=== PATIENT | female | born 1930 | race Caucasian/White ===

== ENCOUNTER 2019-06-07 14:31 | Observation (INO) | payer MEDICARE, OTHER ==
[2019-06-07] MEDS ORDERED: Sodium Chloride 0.9% 10 ML Syringe FLUSH PRN (14:36)
--- NOTE | 2019-06-07 14:43 | EDM.PDOC ---
ED HPI GENERAL MEDICAL PROBLEM - General Time Seen by Provider: 06/07/19 14:31 Source of Information: Reports: Patient, EMS History Limitations: Reports: No Limitations - History of Present Illness INITIAL COMMENTS - FREE TEXT/NARRATIVE: Patient comes into the emergency department with sudden onset of chest/ epigastric discomfort. Patient states that it came on suddenly approximately 30 minutes after she had lunch. She states that she did have some fried eggs for lunch. She states that she became extremely nauseated and short of breath. She states that it lasted approximate 45 minutes. End up calling 911 for the patient does have a coronary artery history. She had a stent placed approximately 8 months ago. She describes the pain as sharp shooting midsternal upper epigastric region. She denies it radiating to her shoulder or jaw region. She states currently that she is experiencing no further pain or discomfort. She is up-to-date with all of her vaccines and did have the flu shot this year. She denies any other concerns or complaints at the present time. EMS did give 4 baby aspirin and completed an EKG prior to the patient's arrival. No ST elevation was noted on the EKG. Onset: Sudden Duration: Constant Location: Reports: Chest, Abdomen Quality: Reports: Sharp, Stabbing Severity: Moderate Improves with: Reports: None Worsens with: Reports: None Context: Reports: Other Associated Symptoms: Reports: Nausea/Vomiting - Related Data Allergies Allergy/AdvReac Type Severity Reaction Status Date / Time ezetimibe [From Zetia] Allergy Cannot Verified 06/07/19 14:44 Remember hydrocodone Allergy Other Verified 06/07/19 14:42 metformin Allergy Rash Verified 06/07/19 14:44 niacin Allergy Rash Verified 06/07/19 14:44 nickel Allergy Rash Verified 06/07/19 14:44 penicillin Allergy Other Verified 06/07/19 14:42 penicillinase Allergy Other Verified 06/07/19 14:42 procaine Allergy Rash Verified 06/07/19 14:44 tramadol Allergy Cannot Verified 06/07/19 14:44 Remember Home Meds: Home Meds Acetaminophen [Tylenol Extra Strength] 1,000 mg PO Q6H PRN 06/07/19 [History] Acetaminophen with Codeine [Tylenol with Codeine #3 Tablet] 1 each PO Q6H PRN [History] Clopidogrel [Plavix] 75 mg PO DAILY 06/07/19 [History] Cyanocobalamin (Vitamin B-12) [Vitamin B-12] 1,000 mcg PO QID 06/07/19 [History] Gabapentin [Neurontin] 600 mg PO TID 06/07/19 [History] Hydrochlorothiazide [Microzide] 12.5 mg PO DAILY 06/07/19 [History] Insulin Aspart [NovoLOG] 2 - 14 unit SQ WITHMEALSANDBED 06/07/19 [History] Insulin Glargine,Hum.Rec.Anlog [Basaglar Kwikpen U-100] 22 unit SQ BEDTIME 06/07 [History] Levothyroxine [Synthroid] 100 mcg PO ACBREAKFAST 06/07/19 [History] Losartan [Cozaar] 25 mg PO DAILY 06/07/19 [History] Melatonin 3 mg PO BEDTIME 06/07/19 [History] Polyethylene Glycol 3350 [MiraLAX] 17 gm PO DAILY 06/07/19 [History] Potassium Chloride 10 meq PO DAILY 06/07/19 [History] Pravastatin Sodium [Pravastatin (Pravachol)] 40 mg PO DAILY 06/07/19 [History] Sotalol HCl [Sotalol] 120 mg PO BID 06/07/19 [History] Warfarin [Coumadin] 5 mg PO DAILY 06/07/19 [History] amLODIPine [Norvasc] 5 mg PO DAILY 06/07/19 [History] fentaNYL [Duragesic] 1 patch TD Q48H 06/07/19 [History] ED ROS GENERAL - Review of Systems Review Of Systems: See Below Constitutional: Reports: No Symptoms HEENT: Reports: No Symptoms Respiratory: Denies: Wheezing, Cough, Sputum, Hemoptysis Cardiovascular: Reports: No Symptoms Endocrine: Reports: No Symptoms GI/Abdominal: Reports: No Symptoms : Reports: No Symptoms Musculoskeletal: Reports: No Symptoms Skin: Reports: No Symptoms Neurological: Reports: No Symptoms Psychiatric: Reports: No Symptoms Hematologic/Lymphatic: Reports: No Symptoms ED EXAM, GENERAL - Physical Exam Exam: See Below Exam Limited By: No Limitations General Appearance: Alert, WD/WN, No Apparent Distress Head: Atraumatic, Normocephalic Neck: Normal Inspection, Supple, Non-Tender, Full Range of Motion Respiratory/Chest: No Respiratory Distress, Lungs Clear, Normal Breath Sounds, No Accessory Muscle Use, Chest Non-Tender Cardiovascular: Normal Peripheral Pulses, Regular Rate, Rhythm, No Edema, No Gallop, No JVD, No Murmur, No Rub GI/Abdominal: Normal Bowel Sounds, Soft, No Organomegaly, No Mass, Pelvis Stable , Tender Back Exam: Normal Inspection, Full Range of Motion, NT Extremities: Normal Inspection, Normal Range of Motion, Non-Tender, Normal Capillary Refill, No Pedal Edema Neurological: Alert, Oriented, CN II-XII Intact, Normal Cognition Psychiatric: Normal Affect Skin Exam: Warm, Dry, Intact, Normal Color, No Rash Course - Vital Signs Last Recorded V/S: Last Vital Signs Temp 35.8 C 06/07/19 14:31 Pulse 75 06/07/19 14:31 Resp 20 06/07/19 14:31 BP 175/77 H 06/07/19 14:31 Pulse Ox 95 06/07/19 14:31 - Orders/Labs/Meds Orders: Active Orders 24 hr Category Date Time Status Admission Status [Patient Status] [ADT] Routine ADT 06/07/19 15:43 Ordered Cardiac Monitoring [RC] . DIRECTED Care 06/07/19 14:35 Active Ketorolac [Toradol] Med 06/07/19 15:44 Once 15 mg IVPUSH ONETIME ONE Sodium Chloride 0.9% [Saline Flush] Med 06/07/19 14:36 Active 10 ml FLUSH ASDIRECTED PRN Peripheral IV Insertion Adult [OM.PC] Stat Oth 06/07/19 14:35 Ordered Medication Orders Sodium Chloride (Saline Flush) 10 ml FLUSH ASDIRECTED PRN PRN Reason: Keep Vein Open Labs: Laboratory Tests 06/07/19 06/07/19 06/07/19 Range/Units 14:48 14:48 14:48 WBC 6.9 (4.0-10.0) x10^3/uL RBC 4.30 (4.00-5.50) x10^6/uL Hgb 12.5 (12.0-16.0) g/dL Hct 38.6 (33.0-47.0) % MCV 89.8 (78.0-93.0) fL MCH 29.1 (26.0-32.0) pg MCHC 32.4 (32.0-36.0) g/dL RDW Coeff of [place] 13.6 (10.0-15.0) % Plt Count 336 (130-400) x10^3/uL Neut % (Auto) 72.7 (50.0-80.0) % Lymph % (Auto) 15.1 L (25.0-50.0) % [place] % (Auto) 10.6 (2.0-11.0) % Eos % (Auto) 1.2 (0.0-4.0) % Baso % (Auto) 0.4 (0.2-1.2) % PT (10.0-12.8) SEC INR (2.0-3.5) Sodium 140 (136-145) mmol/L Potassium 3.6 (3.5-5.1) mmol/L Chloride 100 (98-107) mmol/L Carbon Dioxide 29 (21-32) mmol/L Anion Gap 14.6 (10-20) mmol/L BUN 22 H (7-18) mg/dL Creatinine 0.9 (0.55-1.02) mg/dL Est Cr Clr Drug Dosing 38.88 mL/min Estimated GFR (MDRD) 59 Glucose 110 H (74-106) mg/dL Lactic Acid 0.9 (0.4-2.0) mmol/L Calcium 10.4 H (8.5-10.1) mg/dL Corrected Calcium 10.32 H (8.5-10.1) mg/dL Total Bilirubin 0.6 (0.2-1.0) mg/dL AST 56 H (15-37) U/L ALT 38 (14-59) U/L Alkaline Phosphatase 92 (46-116) U/L Creatine Kinase 101 (26-192) U/L POC Troponin I (0.00-0.08) ng/mL NT-Pro-B Natriuret Pep 179 (<=450) pg/mL Total Protein 7.7 (6.4-8.2) g/dL Albumin 4.1 (3.4-5.0) g/dL Globulin 3.6 Albumin/Globulin Ratio 1.14 Amylase 43 (25-115) U/L Lipase 90 (73-393) U/L 06/07/19 06/07/19 Range/Units 14:48 14:52 WBC (4.0-10.0) x10^3/uL RBC (4.00-5.50) x10^6/uL Hgb (12.0-16.0) g/dL Hct (33.0-47.0) % MCV (78.0-93.0) fL MCH (26.0-32.0) pg MCHC (32.0-36.0) g/dL RDW Coeff of [place] (10.0-15.0) % Plt Count (130-400) x10^3/uL Neut % (Auto) (50.0-80.0) % Lymph % (Auto) (25.0-50.0) % [place] % (Auto) (2.0-11.0) % Eos % (Auto) (0.0-4.0) % Baso % (Auto) (0.2-1.2) % PT 24.9 H (10.0-12.8) SEC INR 2.2 (2.0-3.5) Sodium (136-145) mmol/L Potassium (3.5-5.1) mmol/L Chloride (98-107) mmol/L Carbon Dioxide (21-32) mmol/L Anion Gap (10-20) mmol/L BUN (7-18) mg/dL Creatinine (0.55-1.02) mg/dL Est Cr Clr Drug Dosing mL/min Estimated GFR (MDRD) Glucose (74-106) mg/dL Lactic Acid (0.4-2.0) mmol/L Calcium (8.5-10.1) mg/dL Corrected Calcium (8.5-10.1) mg/dL Total Bilirubin (0.2-1.0) mg/dL AST (15-37) U/L ALT (14-59) U/L Alkaline Phosphatase (46-116) U/L Creatine Kinase (26-192) U/L POC Troponin I 0.00 (0.00-0.08) ng/mL NT-Pro-B Natriuret Pep (<=450) pg/mL Total Protein (6.4-8.2) g/dL Albumin (3.4-5.0) g/dL Globulin Albumin/Globulin Ratio Amylase (25-115) U/L Lipase (73-393) U/L Meds: Medications Generic Name Dose Route Start Last Admin Trade Name Freq PRN Reason Stop Dose Admin Sodium Chloride 10 ml 06/07/19 14:36 Saline Flush FLUSH ASDIRECTED PRN Keep Vein Open Discontinued Medications Generic Name Dose Route Start Last Admin Trade Name Ignacioq PRN Reason Stop Dose Admin Ketorolac Tromethamine 15 mg 06/07/19 15:17 Toradol IVPUSH 06/07/19 15:18 ONETIME ONE Ketorolac Tromethamine 30 mg 06/07/19 15:30 Toradol IM 06/07/19 15:31 ONETIME ONE Ketorolac Tromethamine 15 mg 06/07/19 15:44 Toradol IVPUSH 06/07/19 15:45 ONETIME ONE Departure - Departure Time of Disposition: 15:50 Disposition: Refer to Observation Clinical Impression: Chronic left hip pain Chest pain Qualifiers: Chest pain type: unspecified Qualified Code(s): R07.9 - Chest pain, unspecified - Discharge Information *PRESCRIPTION DRUG MONITORING PROGRAM REVIEWED*: Not Applicable *COPY OF PRESCRIPTION DRUG MONITORING REPORT IN PATIENT EMMETT: Not Applicable Sepsis Event Note - Focused Exam Vital Signs: Vital Signs Temp Pulse Resp BP Pulse Ox 06/07/19 14:31 35.8 C 75 20 175/77 H 95 Date Exam was Performed: 06/07/19 Time Exam was Performed: 15:45 - Problem List Review Problem List Initiated/Reviewed/Updated: Yes - My Orders Last 24 Hours: My Active Orders 06/07/19 14:35 Cardiac Monitoring [RC] . DIRECTED Peripheral IV Insertion Adult [OM.PC] Stat 06/07/19 14:36 Sodium Chloride 0.9% [Saline Flush] 10 ml FLUSH ASDIRECTED PRN 06/07/19 15:43 Admission Status [Patient Status] [ADT] Routine 06/07/19 15:44 Ketorolac [Toradol] 15 mg IVPUSH ONETIME ONE - Assessment/Plan Admission H&P: Please use this note as an admission H&P Last 24 Hours: My Active Orders 06/07/19 14:35 Cardiac Monitoring [RC] . DIRECTED Peripheral IV Insertion Adult [OM.PC] Stat 06/07/19 14:36 Sodium Chloride 0.9% [Saline Flush] 10 ml FLUSH ASDIRECTED PRN 06/07/19 15:43 Admission Status [Patient Status] [ADT] Routine 06/07/19 15:44 Ketorolac [Toradol] 15 mg IVPUSH ONETIME ONE Assessment:: 1. chest pain 2. Epigastric pain 3. Nausea Plan: 1. Labs completed in the ER. Results reviewed with patient 2. Chest x-ray completed in the ER. Results patient 3. IV ordered in the emergency department 4. Abdomen and pelvis without contrast in ER. Results reviewed with patient 5. Patient will be admitted observation for further monitoring of her cardiac enzymes. Patient will be admitted to observation as a code level II, IV inserted , diabetic diet, pain mediations ordered for chronic hip pain, Pt is anticoagulated for DVT prophylaxis, labs ordered, and activity ordered . 6. Patient and family updated and all questions and concerns addressed prior to admit
[2019-06-07] MEDS ORDERED: Ketorolac 15 MG/ML SDV IVPUSH ONE ×2 (15:17→15:44)
[2019-06-07 15:22] LABS: ANION GAP 14.6 mmol/L (10-20)
[2019-06-07] MEDS ORDERED: Ketorolac 30 MG/ML SDV IM ONE (15:30)
--- NOTE | 2019-06-07 15:32 | CT ---
[id number] CT/CT Abdomen Pelvis WO IV Exam: CT Abdomen Pelvis WO IV Clinical Data: ABDOMINAL PAIN COMPARISON: NO PREVIOUS SIMILAR EXAM IS AVAILABLE FINDINGS: A 3.5 cm soft tissue subcutaneous partially marginated mass is seen in the right anterior abdominal wall. This is seen on image 97, series 2 Question is raised if the patient has been receiving subcutaneous injections This could represent an injection site or hematoma Abscess and cutaneous metastases are considered in the differential diagnosis. Other similar smaller findings are also seen on the right side on image 62, series 2. The lack of IV contrast limits the study somewhat. The pelvis shows no mass or adenopathy The appendix is not definitely seen. There is no evidence to suggest appendicitis or diverticulitis however There is evidence of cholecystolithiasis on image 40, series 2 The liver and spleen, right adrenal, aorta, pancreas and kidneys otherwise show no acute abnormalities. The right ureter and right renal collecting system is slightly prominent Right-sided calcifications are thought to be phleboliths and outside of the ureter Question raised if the patient has renal colic or any hematuria. Slight nodularity of the left adrenal on image 26, series 2 likely represents an adenoma. This can be no checked with follow-up imaging if needed. Degenerative changes of the right hip are noted Surgical changes of the left hip are present IMPRESSION: ANTERIOR ABDOMINAL WALL SOFT TISSUE DENSITIES SEE DISCUSSION ABOVE NO OTHER ACUTE PATHOLOGY Nii Valencia MD 06/07/19 [id number] Thank you for allowing us to participate in the care of your patient.
--- NOTE | 2019-06-07 15:33 | CR ---
[id number] RAD/RAD Chest PA or AP 1V EXAM: SINGLE VIEW CHEST. INDICATION: ABDOMINAL PAIN COMPARISON: NO PREVIOUS SIMILAR EXAM IS AVAILABLE FINDINGS: The lungs are clear. The cardiomediastinal contour is moderately enlarged IMPRESSION: NO ACUTE PROCESS Nii Valencia MD 06/07/19 [id number] Thank you for allowing us to participate in the care of your patient.
[2019-06-07] MEDS ORDERED: Ondansetron 4 MG/2 ML SDV IV PRN (15:58)
[2019-06-07] MEDS ORDERED: Acetaminophen 325 MG Tab PO PRN (15:58)
[2019-06-07] MEDS: Acetaminophen/Codeine 300-30 MG Tab PO PRN (19:36)
[2019-06-07] MEDS: Sotalol 80 MG Tab PO SCH (19:36)
[2019-06-07] MEDS: Ketorolac 15 MG/ML SDV IVPUSH PRN (19:38)
[2019-06-07] MEDS: Insulin Lispro 100 Unit/ML 3 ML KwikPen SUBCUT SCH (19:40)
[2019-06-07] MEDS ORDERED: Insulin Glarg,Human.Rec.Analog 100 Unit/ML SUBCUT SCH (20:00)
[2019-06-07] MEDS ORDERED: Gabapentin 300 MG Cap PO SCH (20:00)
[2019-06-07] MEDS ORDERED: Warfarin 5 MG Tab PO SCH (20:00)
[2019-06-07] MEDS ORDERED: Melatonin 3 MG Tab PO SCH (20:00)
[2019-06-07] MEDS ORDERED: cloNIDine 0.1 MG Tab PO STA (22:53)
[2019-06-07] MEDS ORDERED: hydrOXYzine HCl 25 MG Tab PO STA (22:53)
[2019-06-08] MEDS ORDERED: Levothyroxine 100 MCG Tab PO SCH (07:00)
[2019-06-08] MEDS ORDERED: Losartan 25 MG Tab PO SCH (08:00)
[2019-06-08] MEDS ORDERED: amLODIPine 5 MG Tab PO SCH (08:00)
[2019-06-08] MEDS ORDERED: Potassium Chloride 10 MEQ Tab.ER PO SCH (08:00)
[2019-06-08] MEDS ORDERED: Polyethylene Glycol 3350 Powder 17 GM Packet PO SCH (08:00)
[2019-06-08] MEDS ORDERED: Hydrochlorothiazide 12.5 MG Cap PO SCH (08:00)
[2019-06-08] MEDS ORDERED: Warfarin 5 MG Tab PO SCH ×2 (08:00→20:00)
[2019-06-08] MEDS ORDERED: Clopidogrel 75 MG Tab PO SCH (08:00)
[2019-06-08 08:22] LABS: CHLORIDE,CL 104 mmol/L (98-107); SODIUM,NA 141 mmol/L (136-145)
[2019-06-08 08:23] LABS: ANION GAP 12.6 mmol/L (10-20)
[2019-06-08] MEDS: Acetaminophen/Codeine 300-30 MG Tab PO PRN (08:52)
[2019-06-08] MEDS: Sotalol 80 MG Tab PO SCH (08:53)
[2019-06-08] MEDS: Insulin Lispro 100 Unit/ML 3 ML KwikPen SUBCUT SCH ×2 (09:01→11:29)
--- NOTE | 2019-06-08 09:16 | PCM.DCSUM1 ---
Discharge Summary - Hospital Course Free Text/Narrative:: Radha is an 89 year old female who presented to the ER yesterday with sudden onset chest pain. Had came on 30 minutes after eating lunch. Was nauseated and short of breath. Unable to find her nitro at home. Did call 911 as she has a cardiac history with a stent placed 8 months ago. Pain was shart across the midsternal region, no radiation of the pain. On arrival to ER, pain had subsided. Had been given 4 baby aspirin by EMS. EKG stable per EMS. Cardiac work up done, EKG stable, troponin negative. Admitted for serial enzymes and monitoring. Was quite anxious, having pain in hip. Awaiting total hip replacement. Fentanyl patch put on yesterday. P Diagnosis: Stroke: No Modified [place] Scale: No Symptoms at All Modified [place] Scale Score: 0 - Discharge Data Discharge Date: 06/08/19 Discharge Disposition: Home, Self-Care 01 Condition: Good - Referral to Home Health Primary Care Physician: PCP Not In Area - Discharge Diagnosis/Problem(s) (1) Chest pain SNOMED Code(s): 66427335 ICD Code: R07.9 - CHEST PAIN, UNSPECIFIED Status: Acute Priority: High Current Visit: Yes Qualifiers: Chest pain type: unspecified Qualified Code(s): R07.9 - Chest pain, unspecified - Patient Summary/Data Complications: none Hospital Course: Patient has been stable from a cardiac standpoint. Has had a fair amount of anxiety, likely related to the pain and hip concerns, and recent cardiac history. Troponins have remained negative through stay. Has not had pain since arrival to ER. Denies shortness of breath or nausea. Is ambulating in room and tolerating well. Appetite has been good. Does routinely see Dr. Saunders in [place] for cardiology. Is scheduled to see him again early June. Discussed contacting his office sooner in the event he would like to see her sooner. She is currently staying in [place] with her son due to hip concerns and awaiting surgery. Records will be sent with patient for his review. - Patient Instructions Diet: Usual Diet as Tolerated Activity: As Tolerated - Discharge Plan *PRESCRIPTION DRUG MONITORING PROGRAM REVIEWED*: Not Applicable *COPY OF PRESCRIPTION DRUG MONITORING REPORT IN PATIENT EMMETT: Not Applicable Home Medications: Home Meds Acetaminophen [Tylenol Extra Strength] 1,000 mg PO Q6H PRN 01/11/20 [History] Acetaminophen with Codeine [Tylenol with Codeine #3 Tablet] 1 each PO Q6H PRN [History] Clopidogrel [Plavix] 75 mg PO DAILY 06/07/19 [History] Cyanocobalamin (Vitamin B-12) [Vitamin B-12] 1,000 mcg PO QID 06/07/19 [History] Hydrochlorothiazide [Microzide] 12.5 mg PO DAILY 06/07/19 [History] Insulin Aspart [NovoLOG] 2 - 14 unit SQ WITHMEALSANDBED 06/07/19 [History] Insulin Glargine,Hum.Rec.Anlog [Basaglar Kwikpen U-100] 22 unit SQ BEDTIME 06/07 [History] Levothyroxine [Synthroid] 100 mcg PO ACBREAKFAST 06/07/19 [History] Losartan [Cozaar] 25 mg PO DAILY 06/07/19 [History] Melatonin 6 mg PO BEDTIME 06/07/19 [History] Polyethylene Glycol 3350 [MiraLAX] 17 gm PO DAILY 06/07/19 [History] Potassium Chloride 10 meq PO DAILY 06/07/19 [History] Pravastatin Sodium [Pravastatin (Pravachol)] 40 mg PO DAILY 06/07/19 [History] Sotalol HCl [Sotalol] 120 mg PO BID 06/07/19 [History] Warfarin [Coumadin] 5 mg PO DAILY 06/07/19 [History] amLODIPine [Norvasc] 5 mg PO DAILY 06/07/19 [History] fentaNYL [Duragesic] 1 patch TD Q48H 06/07/19 [History] Forms: ED Department Discharge Referrals: Anthony Saunders MD [Ordering Only Provider] - (Follow up with Dr. Saunders as planned in early June) - Discharge Summary/Plan Comment DC Time >30 min.: No - General Info Date of Service: 06/08/19 Admission Dx/Problem (Free Text: Chest Pain Functional Status: Reports: Pain Controlled, Tolerating Diet, Ambulating - Review of Systems General: Reports: Weakness HEENT: Reports: No Symptoms Pulmonary: Denies: Shortness of Breath, Cough Cardiovascular: Denies: Chest Pain, Edema, Lightheadedness Gastrointestinal: Denies: Abdominal Pain, Nausea, Vomiting Genitourinary: Reports: No Symptoms Musculoskeletal: Reports: Joint Pain Skin: Reports: No Symptoms Neurological: Reports: No Symptoms - Patient Data Vitals - Most Recent: Last Vital Signs Temp 97.3 F 06/08/19 05:29 Pulse 67 06/08/19 05:29 Resp 17 06/08/19 05:29 BP 143/55 H 06/08/19 08:53 Pulse Ox 99 06/08/19 05:29 Weight - Most Recent: 194 lb I&O - Last 24 hours: Intake & Output 06/07/19 06/08/19 06/08/19 22:59 06:59 14:59 Intake Total 240 300 420 Balance 240 300 420 Lab Results - Last 24 hrs: Laboratory Results - last 24 hr 06/07/19 06/07/19 06/07/19 Range/Units 14:48 14:48 14:48 WBC 6.9 (4.0-10.0) x10^3/uL RBC 4.30 (4.00-5.50) x10^6/uL Hgb 12.5 (12.0-16.0) g/dL Hct 38.6 (33.0-47.0) % MCV 89.8 (78.0-93.0) fL MCH 29.1 (26.0-32.0) pg MCHC 32.4 (32.0-36.0) g/dL RDW Coeff of [place] 13.6 (10.0-15.0) % Plt Count 336 (130-400) x10^3/uL Neut % (Auto) 72.7 (50.0-80.0) % Lymph % (Auto) 15.1 L (25.0-50.0) % [place] % (Auto) 10.6 (2.0-11.0) % Eos % (Auto) 1.2 (0.0-4.0) % Baso % (Auto) 0.4 (0.2-1.2) % PT (10.0-12.8) SEC INR (2.0-3.5) Sodium 140 (136-145) mmol/L Potassium 3.6 (3.5-5.1) mmol/L Chloride 100 (98-107) mmol/L Carbon Dioxide 29 (21-32) mmol/L Anion Gap 14.6 (10-20) mmol/L BUN 22 H (7-18) mg/dL Creatinine 0.9 (0.55-1.02) mg/dL Est Cr Clr Drug Dosing 38.88 mL/min Estimated GFR (MDRD) 59 Glucose 110 H (74-106) mg/dL POC Glucose (74-106) mg/dL Lactic Acid 0.9 (0.4-2.0) mmol/L Calcium 10.4 H (8.5-10.1) mg/dL Corrected Calcium 10.32 H (8.5-10.1) mg/dL Total Bilirubin 0.6 (0.2-1.0) mg/dL AST 56 H (15-37) U/L ALT 38 (14-59) U/L Alkaline Phosphatase 92 (46-116) U/L Creatine Kinase 101 (26-192) U/L POC Troponin I (0.00-0.08) ng/mL Troponin I (<=0.056) ng/mL NT-Pro-B Natriuret Pep 179 (<=450) pg/mL Total Protein 7.7 (6.4-8.2) g/dL Albumin 4.1 (3.4-5.0) g/dL Globulin 3.6 Albumin/Globulin Ratio 1.14 Amylase 43 (25-115) U/L Lipase 90 (73-393) U/L 06/07/19 06/07/19 06/07/19 Range/Units 14:48 14:52 17:42 WBC (4.0-10.0) x10^3/uL RBC (4.00-5.50) x10^6/uL Hgb (12.0-16.0) g/dL Hct (33.0-47.0) % MCV (78.0-93.0) fL MCH (26.0-32.0) pg MCHC (32.0-36.0) g/dL RDW Coeff of [place] (10.0-15.0) % Plt Count (130-400) x10^3/uL Neut % (Auto) (50.0-80.0) % Lymph % (Auto) (25.0-50.0) % [place] % (Auto) (2.0-11.0) % Eos % (Auto) (0.0-4.0) % Baso % (Auto) (0.2-1.2) % PT 24.9 H (10.0-12.8) SEC INR 2.2 (2.0-3.5) Sodium (136-145) mmol/L Potassium (3.5-5.1) mmol/L Chloride (98-107) mmol/L Carbon Dioxide (21-32) mmol/L Anion Gap (10-20) mmol/L BUN (7-18) mg/dL Creatinine (0.55-1.02) mg/dL Est Cr Clr Drug Dosing mL/min Estimated GFR (MDRD) Glucose (74-106) mg/dL POC Glucose 108 H (74-106) mg/dL Lactic Acid (0.4-2.0) mmol/L Calcium (8.5-10.1) mg/dL Corrected Calcium (8.5-10.1) mg/dL Total Bilirubin (0.2-1.0) mg/dL AST (15-37) U/L ALT (14-59) U/L Alkaline Phosphatase (46-116) U/L Creatine Kinase (26-192) U/L POC Troponin I 0.00 (0.00-0.08) ng/mL Troponin I (<=0.056) ng/mL NT-Pro-B Natriuret Pep (<=450) pg/mL Total Protein (6.4-8.2) g/dL Albumin (3.4-5.0) g/dL Globulin Albumin/Globulin Ratio Amylase (25-115) U/L Lipase (73-393) U/L 06/07/19 06/07/19 06/08/19 Range/Units 19:24 19:28 06:15 WBC (4.0-10.0) x10^3/uL RBC (4.00-5.50) x10^6/uL Hgb (12.0-16.0) g/dL Hct (33.0-47.0) % MCV (78.0-93.0) fL MCH (26.0-32.0) pg MCHC (32.0-36.0) g/dL RDW Coeff of [place] (10.0-15.0) % Plt Count (130-400) x10^3/uL Neut % (Auto) (50.0-80.0) % Lymph % (Auto) (25.0-50.0) % [place] % (Auto) (2.0-11.0) % Eos % (Auto) (0.0-4.0) % Baso % (Auto) (0.2-1.2) % PT (10.0-12.8) SEC INR (2.0-3.5) Sodium (136-145) mmol/L Potassium (3.5-5.1) mmol/L Chloride (98-107) mmol/L Carbon Dioxide (21-32) mmol/L Anion Gap (10-20) mmol/L BUN (7-18) mg/dL Creatinine (0.55-1.02) mg/dL Est Cr Clr Drug Dosing mL/min Estimated GFR (MDRD) Glucose (74-106) mg/dL POC Glucose 199 H 139 H (74-106) mg/dL Lactic Acid (0.4-2.0) mmol/L Calcium (8.5-10.1) mg/dL Corrected Calcium (8.5-10.1) mg/dL Total Bilirubin (0.2-1.0) mg/dL AST (15-37) U/L ALT (14-59) U/L Alkaline Phosphatase (46-116) U/L Creatine Kinase (26-192) U/L POC Troponin I 0.00 (0.00-0.08) ng/mL Troponin I (<=0.056) ng/mL NT-Pro-B Natriuret Pep (<=450) pg/mL Total Protein (6.4-8.2) g/dL Albumin (3.4-5.0) g/dL Globulin Albumin/Globulin Ratio Amylase (25-115) U/L Lipase (73-393) U/L 06/08/19 06/08/19 Range/Units 07:45 07:45 WBC 7.5 (4.0-10.0) x10^3/uL RBC 3.94 L (4.00-5.50) x10^6/uL Hgb 11.4 L (12.0-16.0) g/dL Hct 35.6 (33.0-47.0) % MCV 90.4 (78.0-93.0) fL MCH 28.9 (26.0-32.0) pg MCHC 32.0 (32.0-36.0) g/dL RDW Coeff of [place] 13.4 (10.0-15.0) % Plt Count 317 (130-400) x10^3/uL Neut % (Auto) 68.7 (50.0-80.0) % Lymph % (Auto) 18.9 L (25.0-50.0) % [place] % (Auto) 11.0 (2.0-11.0) % Eos % (Auto) 1.1 (0.0-4.0) % Baso % (Auto) 0.3 (0.2-1.2) % PT (10.0-12.8) SEC INR (2.0-3.5) Sodium 141 (136-145) mmol/L Potassium 3.6 (3.5-5.1) mmol/L Chloride 104 (98-107) mmol/L Carbon Dioxide 28 (21-32) mmol/L Anion Gap 12.6 (10-20) mmol/L BUN 25 H (7-18) mg/dL Creatinine 0.8 (0.55-1.02) mg/dL Est Cr Clr Drug Dosing 43.74 mL/min Estimated GFR (MDRD) > 60 Glucose 131 H (74-106) mg/dL POC Glucose (74-106) mg/dL Lactic Acid (0.4-2.0) mmol/L Calcium 9.8 (8.5-10.1) mg/dL Corrected Calcium (8.5-10.1) mg/dL Total Bilirubin (0.2-1.0) mg/dL AST (15-37) U/L ALT (14-59) U/L Alkaline Phosphatase (46-116) U/L Creatine Kinase (26-192) U/L POC Troponin I (0.00-0.08) ng/mL Troponin I < 0.017 (<=0.056) ng/mL NT-Pro-B Natriuret Pep (<=450) pg/mL Total Protein (6.4-8.2) g/dL Albumin (3.4-5.0) g/dL Globulin Albumin/Globulin Ratio Amylase (25-115) U/L Lipase (73-393) U/L Med Orders - Current: Current Medications Acetaminophen (Tylenol) 650 mg PO Q4H PRN PRN Reason: Pain (Mild 1-3)/fever Acetaminophen/Codeine Phosphate (Tylenol With Codeine No.3 300mg/30mg) 1 tab PO Q6H PRN PRN Reason: Pain Last Admin: 06/08/19 08:52 Dose: 1 tab Amlodipine Besylate (Norvasc) 5 mg PO DAILY [facility] Last Admin: 06/08/19 08:51 Dose: 5 mg Clopidogrel Bisulfate (Plavix) 75 mg PO DAILY [facility] Last Admin: 06/08/19 08:52 Dose: 75 mg Cyanocobalamin (Vitamin B12) 1,000 mcg PO MoWeFr@0800 [facility] Hydrochlorothiazide (Hydrochlorothiazide) 12.5 mg PO DAILY [facility] Last Admin: 06/08/19 08:52 Dose: 12.5 mg Insulin Glargine (Lantus) 22 unit SUBCUT BEDTIME [facility] Last Admin: 06/07/19 19:41 Dose: 22 units Insulin Human Lispro (Humalog) 0 unit SUBCUT WITHMEALSANDBED [facility]; Protocol Last Admin: 06/08/19 09:01 Dose: 5 units Ketorolac Tromethamine (Toradol) 15 mg IVPUSH Q6H PRN PRN Reason: Pain (moderate 4-6) Last Admin: 06/07/19 19:38 Dose: 15 mg Levothyroxine Sodium (Synthroid) 100 mcg PO ACBREAKFAST [facility] Last Admin: 06/08/19 06:09 Dose: 100 mcg Losartan Potassium (Cozaar) 25 mg PO DAILY [facility] Last Admin: 06/08/19 08:52 Dose: 25 mg Melatonin (Melatonin) 6 mg PO BEDTIME [facility] Last Admin: 06/07/19 19:35 Dose: 6 mg Ondansetron HCl (Zofran) 4 mg IV Q6H PRN PRN Reason: Nausea/Vomiting Polyethylene Glycol (Miralax) 17 gm PO DAILY [facility] Last Admin: 06/08/19 08:50 Dose: 17 gm Potassium Chloride (Klor-Con 10) 10 meq PO DAILY [facility] Last Admin: 06/08/19 08:52 Dose: 10 meq Simvastatin (Zocor) 20 mg PO BEDTIME [facility] Sodium Chloride (Saline Flush) 10 ml FLUSH ASDIRECTED PRN PRN Reason: Keep Vein Open Sotalol HCl (Betapace) 120 mg PO BID [facility] Last Admin: 06/08/19 08:53 Dose: 120 mg Warfarin Sodium (Coumadin) 2.5 mg PO MoFr@0800 [facility] Warfarin Sodium (Coumadin) 5 mg PO DAILY [facility] Last Admin: 06/08/19 08:52 Dose: 5 mg Discontinued Medications Clonidine HCl (Catapres) 0.1 mg PO ONETIME STA Stop: 06/07/19 22:54 Last Admin: 06/07/19 23:05 Dose: 0.1 mg Gabapentin (Neurontin) 600 mg PO TID [facility] Last Admin: 06/07/19 19:02 Dose: Not Given Hydroxyzine HCl (Atarax) 25 mg PO ONETIME STA Stop: 06/07/19 22:54 Last Admin: 06/07/19 23:05 Dose: 25 mg Ketorolac Tromethamine (Toradol) 15 mg IVPUSH ONETIME ONE Stop: 06/07/19 15:18 Last Admin: 06/07/19 19:03 Dose: Not Given Ketorolac Tromethamine (Toradol) 30 mg IM ONETIME ONE Stop: 06/07/19 15:31 Last Admin: 06/07/19 19:03 Dose: Not Given Ketorolac Tromethamine (Toradol) 15 mg IVPUSH ONETIME ONE Stop: 06/07/19 15:45 Last Admin: 06/07/19 15:48 Dose: 15 mg Warfarin Sodium (Coumadin) 5 mg PO BEDTIME [facility] Warfarin Sodium (Coumadin) 5 mg PO BEDTIME [facility] Last Admin: 06/07/19 19:00 Dose: Not Given - Exam General: Reports: Alert, Oriented HEENT: Reports: Mucous Membr. Moist/[place] Neck: Reports: Supple Lungs: Reports: Clear to Auscultation, Normal Respiratory Effort Cardiovascular: Reports: Regular Rate, Regular Rhythm GI/Abdominal Exam: Normal Bowel Sounds, Soft, Non-Tender Extremities: Normal Inspection, No Pedal Edema Skin: Reports: Warm, Dry Neurological: Reports: No New Focal Deficit
[2019-06-08 10:59] VITALS: BP 110/56; PULSE 62
[2019-06-08] MEDS: Ketorolac 15 MG/ML SDV IVPUSH PRN (11:36)
[2019-06-08] MEDS ORDERED: Simvastatin 20 MG Tab PO SCH (20:00)
[2019-06-09] MEDS ORDERED: Warfarin 2.5 MG Tab PO SCH (08:00)
[2019-06-09] MEDS ORDERED: Cyanocobalamin (Vitamin B12) 1,000 MCG Tab PO SCH (08:00)
== END 2019-06-08 12:20 | disposition home or self-care (01) ==
LOC: VM.ED 14:31 → VM.MS 15:43
PROVIDERS: ADMIT Nurse Practitioner; ATTEND Nurse Practitioner
DX: R07.2 Precordial pain (principal); R10.13 Epigastric pain; G89.29 Other chronic pain; M25.552 Pain in left hip; R11.0 Nausea; F41.9 Anxiety disorder, unspecified; Z79.4 Long term (current) use of insulin; Z79.01 Long term (current) use of anticoagulants; Z79.899 Other long term (current) drug therapy; Z88.8 Allergy status to other drugs, medicaments and biological substances; Z88.0 Allergy status to penicillin; Z88.5 Allergy status to narcotic agent; Z88.1 Allergy status to other antibiotic agents
CPT/HCPCS: 36415; 71045; 74176; 80048; 80053; 82150; 82550; 82962; 83605; 83690; 83880; 84484; 85025; 85610; 99217; 99219; A9270-GY; J1815-GY; J1885